=== PATIENT | male | born 1950 | race Caucasian/White ===

== ENCOUNTER 2019-06-01 13:53 | Day surgery (SDC) | payer OTHER ==
[2019-05-27 14:47] LABS: BASOPHILS # (AUTO) 0.1 X10'3 (0-0.2); BASOPHILS % (AUTO) 1.1 % (0-1); EOSINOPHILS # (AUTO) 0.2 X10'3 (0-0.9); EOSINOPHILS % (AUTO) 3.4 % (0-6); HEMATOCRIT 48.3 % (42.0-52.0); HEMOGLOBIN 16.9 g/dl (14.0-17.9); LYMPHOCYTES # (AUTO) 1.4 X10'3 (1.1-4.8); LYMPHOCYTES % (AUTO) 27.4 % (21-51); MEAN CORPUSCULAR HEMOGLOBIN 31.4 PG (27.0-31.0); MEAN CORPUSCULAR HGB CONC 35.1 g/dL (33.0-36.5); MEAN CORPUSCULAR VOLUME 89.6 FL (78-98); MEAN PLATELET VOLUME 7.5 FL (7.4-10.4); MONOCYTES # (AUTO) 0.5 X10'3 (0-0.9); MONOCYTES % (AUTO) 10.2 % (2-12); NEUTROPHILS % (AUTO) 57.9 % (42-75); PLATELET COUNT 196 X10'3 (140-440); RED BLOOD COUNT 5.39 X10'6 (4.70-6.10); WHITE BLOOD COUNT 5.1 X10'3 (4.5-11.0)
[2019-05-27 14:59] LABS: ALBUMIN 3.6 G/DL (3.4-5.0); ANION GAP 7 (8-16); BLOOD UREA NITROGEN 15 MG/DL (7-18); BUN/CREATININE RATIO 16.1 (5.4-32.0); CALCIUM 9.8 MG/DL (8.5-10.1); CHLORIDE 101 MMOL/L (99-107); CREATININE 0.93 MG/DL (0.60-1.10); GLUCOSE 107 MG/DL (70-104); POTASSIUM 3.4 MMOL/L (3.5-5.1); SODIUM 137 MMOL/L (135-145); TOTAL CARBON DIOXIDE 29.1 MMOL/L (24-32); eGFR 81 ML/MIN
[2019-05-27 15:02] LABS: PARTIAL THROMBOPLASTIN TIME 30 SECONDS (22-32)
[2019-06-01] VITALS (8 sets, daily range): BP systolic 107–153; BP diastolic 61–87
[~2019-06-01] VITALS: Ht 188 cm; Wt 117.3 kg
[2019-06-01] MEDS ORDERED: LORazepam 0.5 MG tablet PO PRN (14:15)
[2019-06-01] MEDS ORDERED: diphenhydrAMINE 25mg capsule PO PRN (14:15)
[2019-06-01] MEDS ORDERED: LORA10TA7 PO (14:37)
[2019-06-01] MEDS ORDERED: ALB0.5UD IH (14:37)
[2019-06-01] MEDS ORDERED: ASPI-1265 PO (14:37)
[2019-06-01] MEDS ORDERED: CHLO25TA2 PO (14:37)
[2019-06-01] MEDS ORDERED: BUDE0.5A11 IH (14:37)
[2019-06-01] MEDS ORDERED: NITR0.4T48 SL (14:37)
[2019-06-01] MEDS ORDERED: LOSA25TA96 PO (14:37)
[2019-06-01] MEDS ORDERED: midazolam 2 mg/2 ml injection ONE ×2 (18:04→18:34)
[2019-06-01] MEDS ORDERED: fentaNYL/PF 50MCG/1 ML 2ML syringe ONE (18:04)
[2019-06-01] MEDS ORDERED: LIDOcaine 1% (10mg/ml)w/preservative injection 20ml MDV ONE (18:05)
[2019-06-01] MEDS ORDERED: iohexol 350MG/ML 100ml bottle IV ONE (18:06)
[2019-06-01] MEDS ORDERED: ondansetron/PF 4mg/2ml inj IV PRN (19:10)
[2019-06-01] MEDS ORDERED: proCHLORperazine 10 MG/2 ml inj IV PRN (19:10)
[2019-06-01] MEDS ORDERED: HYDROcodone/acetaminophen 10/325mg tab PO PRN (19:10)
[2019-06-01] MEDS ORDERED: HYDROcodone/acetaminophen 5mg/325mg tablet PO PRN (19:10)
[2019-06-01] MEDS ORDERED: OXAZEpam 15mg capsule PO PRN (19:10)
== END 2019-06-01 20:55 | disposition home or self-care (01) ==
LOC: SSTAY O 13:53
PROVIDERS: ATTEND Internal Medicine Interventional Cardiology
DX: R94.39 Abnormal result of other cardiovascular function study (principal); I10 Essential (primary) hypertension; J45.909 Unspecified asthma, uncomplicated; E78.5 Hyperlipidemia, unspecified; I44.7 Left bundle-branch block, unspecified; Z79.899 Other long term (current) drug therapy; Z79.82 Long term (current) use of aspirin; Z87.891 Personal history of nicotine dependence; Z79.01 Long term (current) use of anticoagulants
CPT/HCPCS: 36415; 80048; 85025; 85610; 85730; 93005; 93458; 99152; 99153; C1769; J1644; J2001; J2250; J3010; Q0163; Q9967; A4620; A6258

== ENCOUNTER 2021-12-06 07:32 | Emergency (ER) | payer OTHER, MEDICARE ==
[~2021-12-06] VITALS: Ht 182.9 cm; Wt 111.4 kg
[~2021-12-06 07:32] MED LIST: ALB0.5UD IH; ASPI-1265 PO; BUDE0.5A11 IH; CHLO25TA2 PO; LORA10TA7 PO; LOSA25TA96 PO; NITR0.4T48 SL
[2021-12-06] MEDS ORDERED: famotidine/PF 10 mg/ml inj IV ONE (07:50)
[2021-12-06] MEDS ORDERED: pantoprazole 40MG/NS 100ML BAG 100 ML IV ONE (07:50)
[2021-12-06] MEDS ORDERED: mag hydrox/Alum hydrox/simeth 30ml oral suspension PO ONE ×2 (07:50→09:15)
[2021-12-06] MEDS ORDERED: LIDOcaine Viscous 15ml cup MM ONE (07:50)
[2021-12-06] MEDS ORDERED: ondansetron/PF 4mg/2ml inj IV ONE (07:50)
[2021-12-06] MEDS ORDERED: normal saline 1000ml 1,000 ML IV ONE (07:50)
[2021-12-06 08:20] LABS: BASOPHILS % (AUTO) 0.2 % (0-1); EOSINOPHILS % (AUTO) 0.1 % (0-6); HEMATOCRIT 46.8 % (42.0-52.0); HEMOGLOBIN 16.2 g/dl (14.0-17.9); LYMPHOCYTES # (AUTO) 0.5 X10'3 (1.1-4.8); LYMPHOCYTES % (AUTO) 3.6 % (21-51); MEAN CORPUSCULAR HGB CONC 34.7 g/dL (33.0-36.5); MEAN CORPUSCULAR VOLUME 86.5 FL (78-98); MEAN PLATELET VOLUME 7.7 FL (7.4-10.4); MONOCYTES # (AUTO) 0.6 X10'3 (0-0.9); MONOCYTES % (AUTO) 4.5 % (2-12); NEUTROPHILS # (AUTO) 11.7 X10'3 (1.8-7.7); NEUTROPHILS % (AUTO) 91.6 % (42-75); PLATELET COUNT 205 X10'3 (140-440); RED BLOOD COUNT 5.42 X10'6 (4.70-6.10); RED CELL DISTRIBUTION WIDTH 12.9 % (11.5-14.5); WHITE BLOOD COUNT 12.8 X10'3 (4.5-11.0)
[2021-12-06 08:34] LABS: ALANINE AMINOTRANSFERASE 33 U/L (12-78); ALBUMIN 3.9 G/DL (3.4-5.0); ALBUMIN/GLOBULIN RATIO 1.1 (1.1-1.5); ALKALINE PHOSPHATASE 77 IU/L (46-116); ANION GAP 10 (8-16); ASPARTATE AMINO TRANSFERASE 19 U/L (10-37); BILIRUBIN,TOTAL 0.7 MG/DL (0.1-1.0); BLOOD UREA NITROGEN 12 MG/DL (7-18); BUN/CREATININE RATIO 14.1 (5.4-32.0); CALCIUM 8.8 MG/DL (8.5-10.1); CHLORIDE 98 MMOL/L (99-107); CREATININE 0.85 MG/DL (0.60-1.10); GLUCOSE 147 MG/DL (70-104); POTASSIUM 3.4 MMOL/L (3.5-5.1); SODIUM 135 MMOL/L (135-145); TOTAL CARBON DIOXIDE 27.4 MMOL/L (24-32); TOTAL PROTEIN 7.6 G/DL (6.4-8.2); eGFR 89 ML/MIN
[2021-12-06 08:38] LABS: LIPASE < 50 U/L (73-393)
[2021-12-06 08:43] LABS: CLARITY,URINE CLOUDY (Clear); COLOR,URINE YELLOW (Yellow); GLUCOSE, URINE NEGATIVE (Neg); KETONES,URINE 15 mg/dl (Neg); LEUKOCYTE ESTERASE ,URINE NEGATIVE (Neg); NITRITES, URINE NEGATIVE (Neg); OCCULT BLOOD,URINE TRACE-INTACT (Neg); PH,URINE 7.5 (4.8-8.0); PROTEIN,URINE NEGATIVE (Neg); UROBILINOGEN,URINE 0.2 E.U/dL (0.2-1.0)
[2021-12-06 08:51] LABS: MUCUS STRANDS FEW /LPF (Neg); SQUAMOUS EPITHELIAL CELL,UR FEW /LPF (FEW); UA COLLECTION TYPE NON-SPECIFIED
[2021-12-06 08:52] LABS: BACTERIA,URINE FEW /HPF (Neg); WBC,URINE 0-4 /HPF (0-4)
[2021-12-06 08:53] LABS: HYALINE CASTS 0-3 /LPF (NEGATIVE)
[2021-12-06 08:54] LABS: AMORPHOUS PHOSPHATES 2+
[2021-12-06] MEDS ORDERED: ketorolac tromethamine 15mg/ml inj. IV ONE (09:15)
[2021-12-06] MEDS ORDERED: FAMO-128 PO (10:08)
[2021-12-06] MEDS ORDERED: ONDA8TAB13 PO (10:08)
[2021-12-06 10:24] VITALS: BP 137/64
[2021-12-07] MEDS ORDERED: NO HOME MEDS (11:05)
[2021-12-07] MEDS ORDERED: CHOL200074 PO (17:16)
[2021-12-07] MEDS ORDERED: LORA10TA7 PO (17:16)
[2021-12-07] MEDS ORDERED: BUDE10.2 INH (17:16)
[2021-12-07] MEDS ORDERED: VIT1CAPS48 PO (17:16)
[2021-12-07] MEDS ORDERED: CHLO25TA2 PO (17:16)
== END 2021-12-06 10:25 | disposition home or self-care (01) ==
LOC: ER 07:32
DX: K29.00 Acute gastritis without bleeding (principal); R10.13 Epigastric pain; R11.2 Nausea with vomiting, unspecified; Z87.11 Personal history of peptic ulcer disease; Z79.82 Long term (current) use of aspirin; Z79.899 Other long term (current) drug therapy
CPT/HCPCS: 36415; 74176; 80053; 81001; 83690; 84484; 85025; 96361; 96374; 96375; 99284; C9113; J1885; J2405; J3490; J7030

== ENCOUNTER 2021-12-06 22:26 | Inpatient (IN) | payer OTHER, MEDICARE ==
[~2021-12-06] VITALS: Ht 182.9 cm; Wt 111.4 kg
[~2021-12-06 22:26] MED LIST changes: +FAMO-128 PO; +ONDA8TAB13 PO
[2021-12-06 23:10] LABS: BASOPHILS % (AUTO) 0.2 % (0-1); EOSINOPHILS % (AUTO) 0.1 % (0-6); HEMATOCRIT 44.7 % (42.0-52.0); HEMOGLOBIN 15.8 g/dl (14.0-17.9); LYMPHOCYTES # (AUTO) 0.5 X10'3 (1.1-4.8); MEAN CORPUSCULAR HEMOGLOBIN 30.1 PG (27.0-31.0); MEAN CORPUSCULAR HGB CONC 35.3 g/dL (33.0-36.5); MEAN CORPUSCULAR VOLUME 85.3 FL (78-98); MEAN PLATELET VOLUME 7.5 FL (7.4-10.4); MONOCYTES # (AUTO) 0.8 X10'3 (0-0.9); MONOCYTES % (AUTO) 4.8 % (2-12); NEUTROPHILS # (AUTO) 15.9 X10'3 (1.8-7.7); NEUTROPHILS % (AUTO) 91.9 % (42-75); PLATELET COUNT 179 X10'3 (140-440); RED BLOOD COUNT 5.24 X10'6 (4.70-6.10); RED CELL DISTRIBUTION WIDTH 13.2 % (11.5-14.5); WHITE BLOOD COUNT 17.3 X10'3 (4.5-11.0)
[2021-12-06 23:45] LABS: ALANINE AMINOTRANSFERASE 25 U/L (12-78); ALBUMIN 3.5 G/DL (3.4-5.0); ALKALINE PHOSPHATASE 63 IU/L (46-116); ANION GAP 13 (8-16); ASPARTATE AMINO TRANSFERASE 16 U/L (10-37); BILIRUBIN,TOTAL 1.4 MG/DL (0.1-1.0); BLOOD UREA NITROGEN 11 MG/DL (7-18); BUN/CREATININE RATIO 10.7 (5.4-32.0); CALCIUM 8.4 MG/DL (8.5-10.1); CHLORIDE 97 MMOL/L (99-107); CREATININE 1.03 MG/DL (0.60-1.10); GLUCOSE 127 MG/DL (70-104); POTASSIUM 3.1 MMOL/L (3.5-5.1); SODIUM 133 MMOL/L (135-145); TOTAL CARBON DIOXIDE 23.5 MMOL/L (24-32); TOTAL PROTEIN 7.1 G/DL (6.4-8.2); eGFR 72 ML/MIN
[2021-12-06] MEDS ORDERED: potassium Cl 20 mEq SR tablet PO STA (23:54)
[2021-12-07] VITALS (17 sets, daily range): BP systolic 98–140; BP diastolic 59–77
[2021-12-07] MEDS ORDERED: ondansetron/PF 4mg/2ml inj IV ONE (00:55)
[2021-12-07] MEDS ORDERED: morphine 2 MG/ML inj. syringe IV ONE (01:05)
[2021-12-07] MEDS: diatr meglu/diatrizoate 30ml oral sol.-(3 dose) bottle PO SCH ×3 (02:07→03:39)
[2021-12-07 02:54] LABS: PLATELET ESTIMATE NORMAL; TOTAL CELLS COUNTED 100
--- NOTE | 2021-12-07 03:50 | NUR ---
Pt to CT
[2021-12-07] MEDS ORDERED: iohexol 300mg/ml 100ml inj. ONE (04:01)
[2021-12-07] MEDS ORDERED: piperacillin/tazo 3.375gm/50ml 50 ML IV ONE (05:40)
[2021-12-07] MEDS: morphine 4 MG/ML inj SYRINge IV PRN ×2 (05:48→10:46)
--- NOTE | 2021-12-07 06:30 | NUR ---
REPORT RECEIVED FROM YADIEL DIAZ.
--- NOTE | 2021-12-07 06:45 | NUR ---
First contact with pt. laying supine in bed with no distress.
[2021-12-07] MEDS ORDERED: acetaminophen 325mg tablet PO PRN (07:35)
[2021-12-07] MEDS ORDERED: magnesium Cl slow-release 64mg tablet PO PRN (07:35)
[2021-12-07] MEDS ORDERED: potassium Cl 20 mEq SR tablet PO PRN (07:35)
[2021-12-07] MEDS ORDERED: magnesium 4gm in 100ml NS 100 ML IV PRN (07:35)
[2021-12-07] MEDS ORDERED: potassium CL 10mEq/100ml bag 100 ML IV PRN (07:35)
[2021-12-07] MEDS ORDERED: ondansetron/PF 4mg/2ml inj IV PRN ×2 (07:35→20:25)
[2021-12-07] MEDS ORDERED: magnesium 2GM in 50ml NS 50 ML IV PRN (07:35)
[2021-12-07 07:56] LABS: MAGNESIUM 1.7 MG/DL (1.5-2.4)
[2021-12-07] MEDS: K and/or MAG REPLACEMENT MC SCH ×2 (08:00→19:10)
[2021-12-07] MEDS: docusate sod 100mg capsule PO SCH ×2 (08:00→19:10)
[2021-12-07] MEDS: normal saline 1000ml 1,000 ML IV SCH ×3 (08:12→22:36)
[2021-12-07] MEDS: potassium CL 10mEq/100ml bag 100 ML IV SCH ×4 (08:36→14:07)
[2021-12-07] MEDS ORDERED: famotidine/PF 10 mg/ml inj IV ONE (09:00)
[2021-12-07] MEDS: potassium Cl 20 mEq SR tablet PO PRN (09:10)
[2021-12-07] MEDS ORDERED: NO HOME MEDS (11:05)
--- NOTE | 2021-12-07 11:43 | NUR ---
report given to short stay. took pt. to short stay in wheelchair. no distress.
[2021-12-07] MEDS ORDERED: morphine 2 MG/ML inj. syringe IV PRN ×3 (13:00→20:25)
[2021-12-07] MEDS ORDERED: CHLO25TA2 PO (17:16)
[2021-12-07] MEDS ORDERED: CHOL200074 PO (17:16)
[2021-12-07] MEDS ORDERED: VIT1CAPS48 PO (17:16)
[2021-12-07] MEDS ORDERED: BUDE10.2 INH (17:16)
[2021-12-07] MEDS ORDERED: LORA10TA7 PO (17:16)
--- NOTE | 2021-12-07 17:43 | NUR ---
Report called to Rafael dietetics director.
[2021-12-07] MEDS ORDERED: INDOCYANINE GREEN 25 MG/10 ML VIAL IV ONE (17:55)
--- NOTE | 2021-12-07 18:05 | NUR ---
Problems reprioritized. Patient report given, questions answered & plan of care reviewed with YADIEL Real and SHIVAM Walters.
[2021-12-07] MEDS ORDERED: LIDOcaine 1% 30ml preserv. free vial ONE (19:25)
[2021-12-07] MEDS ORDERED: BUPIVAcaine 0.5% inj/PF 30 ML ONE (19:25)
[2021-12-07] MEDS ORDERED: sevoflurane 250ml liquid IH ONE (19:40)
[2021-12-07] MEDS ORDERED: neostigmine methylsulfate 1 MG/ML 10ml vial ONE (19:40)
[2021-12-07] MEDS ORDERED: rocuronium 10mg/ml inj IV ONE (19:44)
[2021-12-07] MEDS ORDERED: propofol inj 20 ML IV ONE (19:44)
[2021-12-07] MEDS ORDERED: LIDOcaine 2% (20mg/ml) 5ml vial ONE (19:44)
[2021-12-07] MEDS ORDERED: dexamethasone sod phosphate 4mg/ml inj. ONE (19:45)
[2021-12-07] MEDS ORDERED: ondansetron/PF 4mg/2ml inj ONE (19:45)
[2021-12-07] MEDS ORDERED: ceFAZolin 1000mg inj ONE ×2 (19:45)
[2021-12-07] MEDS ORDERED: fentaNYL/PF 50MCG/1 ML 2ML syringe ONE (19:45)
[2021-12-07] MEDS ORDERED: midazolam 1 mg/ML 2ml injection ONE (19:46)
[2021-12-07] MEDS ORDERED: glycopyrrolate 0.2mg/ml inj ONE (19:46)
[2021-12-07] MEDS ORDERED: fentaNYL/PF 50MCG/1 ML 2ML syringe IV PRN ×2 (20:25)
[2021-12-07] MEDS ORDERED: BUPIVAcaine 0.5% inj/PF 30 ml vial IJ ONE (20:25)
[2021-12-07] MEDS ORDERED: ringers solution, lacted 1,000 ML IV SCH (20:25)
[2021-12-07] MEDS ORDERED: morphine 4 MG/ML inj SYRINge IV PRN (20:25)
[2021-12-07] MEDS ORDERED: hydrALAZINE 20mg/ml inj. IV PRN (20:25)
[2021-12-07] MEDS ORDERED: labetalol 20mg/4ml (5mg/ml) syringe IV PRN (20:25)
[2021-12-07] MEDS ORDERED: morphine/NS PCA 1mg/ml 50ml 50 ML IV SCH (20:50)
[2021-12-07] MEDS ORDERED: naloxone 0.4 mg/ml inj IV PRN (20:50)
[2021-12-07] MEDS ORDERED: morphine 10mg/ml inj. ONE (20:51)
--- NOTE | 2021-12-07 20:57 | NUR ---
Received from OR via HOSPITAL BED, accompanied by Anesthesiologist DR LUA and report given by Anesthesiolgist. PT PRESENTS WITH PIV 20G RIGHT WRIST, ABD DRESSING 3 BANDAIDS WITH DORIAN DRAIN ON RIGHT ABDOMEN, VSS. Addendum: 12/07/21 at 2111 by Lawanda Short RN, RN Amended: Links added.
[2021-12-07] MEDS: HYDROmorph/NS 0.2 mg/ml PCA 100 ML IV SCH ×3 (21:00→23:00)
[2021-12-07] MEDS ORDERED: CADD PCA waste documentation MC SCH (21:10)
--- NOTE | 2021-12-07 21:57 | NUR ---
Report called to receiving nurse DAVID COTTO. Transferred via HOSPITAL BED. PT Belongings WERE LEFT IN PT ROOM 4012B. BED IN LOW LOCKED POSITION, CALL LIGHT IN REACH, PT HOOKED UP TO VITALS MONITOR. CADD PUMP REVIEWED, ABD LAP SITES VIEWED AND PALPATED WITH DAVID COTTO, Special Issues communicated to receiving nurse. Addendum: 12/07/21 at 2230 by Lawanda Short RN RN Amended: Links added.
[2021-12-08] VITALS (7 sets, daily range): BP systolic 107–144; BP diastolic 60–79
[2021-12-08] MEDS: HYDROmorph/NS 0.2 mg/ml PCA 100 ML IV SCH ×12 (01:00→23:00)
--- NOTE | 2021-12-08 06:29 | NUR ---
Problems reprioritized. Patient report given, questions answered & plan of care reviewed with YADIEL Kent.
--- NOTE | 2021-12-08 06:53 | NUR ---
received report assumed care. pt in bed appears to be asleep. Call light in reach bed low rails up x3
[2021-12-08] MEDS: K and/or MAG REPLACEMENT MC SCH ×2 (06:56→20:00)
[2021-12-08] MEDS: docusate sod 100mg capsule PO SCH ×2 (08:00→20:23)
[2021-12-08 08:05] LABS: BASOPHILS % (AUTO) 0.1 % (0-1); EOSINOPHILS % (AUTO) 0 % (0-6); HEMOGLOBIN 14.9 g/dl (14.0-17.9); LYMPHOCYTES # (AUTO) 0.4 X10'3 (1.1-4.8); LYMPHOCYTES % (AUTO) 3.4 % (21-51); MEAN CORPUSCULAR HEMOGLOBIN 30.3 PG (27.0-31.0); MEAN CORPUSCULAR HGB CONC 34.7 g/dL (33.0-36.5); MEAN CORPUSCULAR VOLUME 87.2 FL (78-98); MEAN PLATELET VOLUME 7.9 FL (7.4-10.4); MONOCYTES # (AUTO) 0.5 X10'3 (0-0.9); MONOCYTES % (AUTO) 3.8 % (2-12); NEUTROPHILS # (AUTO) 11.6 X10'3 (1.8-7.7); NEUTROPHILS % (AUTO) 92.7 % (42-75); PLATELET COUNT 167 X10'3 (140-440); RED BLOOD COUNT 4.92 X10'6 (4.70-6.10); RED CELL DISTRIBUTION WIDTH 13.1 % (11.5-14.5); WHITE BLOOD COUNT 12.5 X10'3 (4.5-11.0)
[2021-12-08] MEDS: sennosides/docusate sodium tablet PO SCH ×2 (08:20→20:23)
[2021-12-08] MEDS: heparin, porcine 5000 units/ml vial SQ SCH ×2 (08:26→20:24)
[2021-12-08 08:59] LABS: ALANINE AMINOTRANSFERASE 42 U/L (12-78); ALBUMIN 2.7 G/DL (3.4-5.0); ALBUMIN/GLOBULIN RATIO 0.7 (1.1-1.5); ALKALINE PHOSPHATASE 64 IU/L (46-116); ANION GAP 10 (8-16); ASPARTATE AMINO TRANSFERASE 36 U/L (10-37); BILIRUBIN,TOTAL 1.1 MG/DL (0.1-1.0); BLOOD UREA NITROGEN 10 MG/DL (7-18); BUN/CREATININE RATIO 10.8 (5.4-32.0); CALCIUM 8.5 MG/DL (8.5-10.1); CHLORIDE 101 MMOL/L (99-107); CREATININE 0.93 MG/DL (0.60-1.10); GLUCOSE 132 MG/DL (70-104); MAGNESIUM 2.2 MG/DL (1.5-2.4); POTASSIUM 3.9 MMOL/L (3.5-5.1); SODIUM 133 MMOL/L (135-145); TOTAL CARBON DIOXIDE 21.8 MMOL/L (24-32); TOTAL PROTEIN 6.7 G/DL (6.4-8.2); eGFR 81 ML/MIN
[2021-12-08] MEDS: albuterol 2.5 MG/3 ML nebule NEB SCH ×2 (15:55→19:55)
--- NOTE | 2021-12-08 18:17 | NUR ---
Problems reprioritized. Patient report given, questions answered & plan of care reviewed with Alisha Kwon.
[2021-12-08] MEDS: budesonide 0.5mg/2ml UD nebule IH SCH (19:55)
[2021-12-09] MEDS: normal saline 1000ml 1,000 ML IV SCH (00:02)
[2021-12-09] MEDS: HYDROmorph/NS 0.2 mg/ml PCA 100 ML IV SCH ×5 (01:00→09:00)
[2021-12-09] MEDS: albuterol 2.5 MG/3 ML nebule NEB SCH ×2 (02:38→09:35)
[2021-12-09 06:00] VITALS: BP 111/67
--- NOTE | 2021-12-09 06:16 | NUR ---
Problems reprioritized. Patient report given, questions answered & plan of care reviewed with YADIEL Swan.
[2021-12-09 06:58] LABS: BASOPHILS % (AUTO) 0.1 % (0-1); EOSINOPHILS % (AUTO) 0.3 % (0-6); HEMATOCRIT 37.6 % (42.0-52.0); HEMOGLOBIN 13.4 g/dl (14.0-17.9); LYMPHOCYTES # (AUTO) 0.8 X10'3 (1.1-4.8); LYMPHOCYTES % (AUTO) 9.4 % (21-51); MEAN CORPUSCULAR HEMOGLOBIN 30.8 PG (27.0-31.0); MEAN CORPUSCULAR HGB CONC 35.6 g/dL (33.0-36.5); MEAN CORPUSCULAR VOLUME 86.5 FL (78-98); MEAN PLATELET VOLUME 7.8 FL (7.4-10.4); MONOCYTES # (AUTO) 0.6 X10'3 (0-0.9); MONOCYTES % (AUTO) 7.4 % (2-12); NEUTROPHILS # (AUTO) 6.7 X10'3 (1.8-7.7); NEUTROPHILS % (AUTO) 82.8 % (42-75); PLATELET COUNT 177 X10'3 (140-440); RED BLOOD COUNT 4.34 X10'6 (4.70-6.10); WHITE BLOOD COUNT 8.1 X10'3 (4.5-11.0)
[2021-12-09 07:29] LABS: ALANINE AMINOTRANSFERASE 36 U/L (12-78); ALBUMIN 2.4 G/DL (3.4-5.0); ALBUMIN/GLOBULIN RATIO 0.6 (1.1-1.5); ALKALINE PHOSPHATASE 49 IU/L (46-116); ANION GAP 8 (8-16); ASPARTATE AMINO TRANSFERASE 26 U/L (10-37); BILIRUBIN,TOTAL 0.6 MG/DL (0.1-1.0); BLOOD UREA NITROGEN 12 MG/DL (7-18); BUN/CREATININE RATIO 12.8 (5.4-32.0); CHLORIDE 102 MMOL/L (99-107); CREATININE 0.94 MG/DL (0.60-1.10); GLUCOSE 122 MG/DL (70-104); POTASSIUM 3.2 MMOL/L (3.5-5.1); SODIUM 135 MMOL/L (135-145); TOTAL CARBON DIOXIDE 25.3 MMOL/L (24-32); TOTAL PROTEIN 6.1 G/DL (6.4-8.2); eGFR 80 ML/MIN
[2021-12-09] MEDS ORDERED: non-formulary drug (Vit A & D3 In Cod Liver Oil (Cod Liver Oil Softgel) 1 EACH) PO SCH (08:00)
[2021-12-09] MEDS: sennosides/docusate sodium tablet PO SCH (08:00)
[2021-12-09] MEDS ORDERED: loratadine 10mg tablet PO SCH (08:00)
[2021-12-09] MEDS ORDERED: chlorthalidone 25mg tablet PO SCH (08:00)
[2021-12-09] MEDS ORDERED: cholecalciferol (vitamin D3) 1,000 unit (25mcg) tablet PO SCH (08:00)
[2021-12-09] MEDS: docusate sod 100mg capsule PO SCH (08:35)
[2021-12-09] MEDS: heparin, porcine 5000 units/ml vial SQ SCH (08:36)
[2021-12-09] MEDS: budesonide 0.5mg/2ml UD nebule IH SCH (09:30)
[2021-12-09 10:00] VITALS: BP 107/58
[2021-12-09] MEDS: K and/or MAG REPLACEMENT MC SCH (10:51)
[2021-12-09] MEDS: potassium Cl 20 mEq SR tablet PO PRN (10:57)
== END 2021-12-09 14:30 | disposition home or self-care (01) | DRG 853 ==
LOC: ER 22:27 → ED HOLD 12-07 07:34 → ORTHO 4S 12-07 15:38
PROVIDERS: ADMIT Internal Medicine; ATTEND Internal Medicine
PROC: 8E0W4CZ Robotic Assisted Procedure of Trunk Region, Percutaneous Endoscopic Approach (ICD-10-PCS; 2021-12-07)
PROC: BF121ZZ Fluoroscopy of Gallbladder using Low Osmolar Contrast (ICD-10-PCS; 2021-12-07)
PROC: BW211ZZ Computerized Tomography (CT Scan) of Abdomen and Pelvis using Low Osmolar Contrast (ICD-10-PCS; 2021-12-07)
PROC: 0FT44ZZ Resection of Gallbladder, Percutaneous Endoscopic Approach (ICD-10-PCS; principal; 2021-12-07 19:40)
DX: A41.9 Sepsis, unspecified organism (principal); K65.9 Peritonitis, unspecified; K81.0 Acute cholecystitis; E87.1 Hypo-osmolality and hyponatremia; Z20.822 Contact with and (suspected) exposure to COVID-19; N28.1 Cyst of kidney, acquired; I10 Essential (primary) hypertension; E87.6 Hypokalemia; K82.8 Other specified diseases of gallbladder; K82.A1 Gangrene of gallbladder in cholecystitis; E66.9 Obesity, unspecified; K21.9 Gastro-esophageal reflux disease without esophagitis; Z87.11 Personal history of peptic ulcer disease; Z68.33 Body mass index [BMI] 33.0-33.9, adult; Z88.5 Allergy status to narcotic agent; Z79.899 Other long term (current) drug therapy
CPT/HCPCS: 36415; 71045; 74177; 80053; 82948; 83605; 83735; 84132; 84145; 85007; 85025; 87040; 87081; 87635; 93005; 94640; 94760; 99285; A4215; A4618; A7000; G0378; J0690; J1100; J1170; J1644; J2250; J2270; J2274; J2405; J2543; J2704; J2710; J3010; J3480; J3490; J7030; J7120; Q9967; S0020